=== PATIENT | female | born 1950 | race Caucasian/White ===

== ENCOUNTER → 2023-06-01 14:29 | Outpatient (CLI) | payer MEDICARE, OTHER, SELFPAY ==
--- NOTE | 2023-06-01 | DI.MG.S_ITS ---
BILATERAL DIGITAL SCREENING MAMMOGRAM 3D/2D WITH CAD: 06/01/2023 CLINICAL: Routine screening. Family history of breast cancer. Comparison is made to exams dated: 09/23/2017 mammogram, 07/15/2016 mammogram, and 05/04/2013 mammogram - [facility]. There are scattered areas of fibroglandular density in both breasts (category b / 25%-50% glandular tissue). Current study was also evaluated with a Computer Aided Detection (CAD) system. No significant masses, calcifications, or other findings are seen in either breast. There has been no significant interval change. IMPRESSION: NEGATIVE There is no mammographic evidence of malignancy. A 1 year screening mammogram is recommended. Based on the Tyrer Cuzick model (a risk assessment model) the patient's lifetime risk is 7.3% and her 10 year risk is 6.0%. According to the ACR, ACS, and NCCN guidelines, an annual breast MRI exam along with mammogram is recommended if the patient's lifetime risk is 20% or greater. This exam was interpreted at Station ID: [id number]. NOTE: For mammograms, a report in lay terms will be sent to the patient. Approximately 15% of breast malignancies will not be visualized mammographically. In the management of a palpable breast mass, a negative mammogram must not discourage biopsy of a clinically suspicious lesion. Electronically Signed By: Cliff linares/jamal:06/02/2023 08:46:14 letter sent: Normal Exam ACR BI-RADS Category 1: Negative [id number]
== END ==
PROVIDERS: Family Provider Family Medicine; PCP Family Medicine; Referring Provider Family Medicine; Visit Provider Family Medicine
DX: Z12.31 Encounter for screening mammogram for malignant neoplasm of breast (principal); Z80.3 Family history of malignant neoplasm of breast
CPT/HCPCS: 77063; 77067

== ENCOUNTER → 2024-11-11 07:51 | Outpatient (CLI) | payer MEDICARE, OTHER, SELFPAY ==
--- NOTE | 2024-11-11 07:53 | DI.MG.S_ITS ---
MM screening mammo BI: 11/11/2024. BI-RADS: 1 CLINICAL: 73-year old female for bilateral screening mammogram. Tyrer-Cuzick lifetime risk of 5.8%. Current reported family history of breast cancer: sister. PRIOR EXAMS 06/01/2023, 09/23/2017, 07/15/2016. MAMMOGRAPHY TECHNIQUE: 2D and 3D (tomosynthesis) digital mammographic views obtained, with additional images as needed for full coverage. Current study was also evaluated with a Computer Aided Detection (CAD) system. DENSITY B. There are scattered areas of fibroglandular density. MAMMOGRAPHY FINDINGS Bilateral: No suspicious mass, asymmetry, microcalcification, or other abnormality seen. IMPRESSION: * No evidence of malignancy. RECOMMENDATIONS Bilateral * Annual screening mammography. OVERALL ASSESSMENT CATEGORY BI-RADS-1: Negative. The [employer] recommends annual screening mammography beginning at age 40 for women with average risk of breast cancer. ELECTRONICALLY SIGNED: Karla Tineo M.D. on 11/14/2024 at 01:37:22 AM PT Interpreting Station ID: [id number]
== END ==
PROVIDERS: Family Provider Family Medicine; PCP Family Medicine; Referring Provider Family Medicine; Visit Provider Family Medicine
DX: Z12.31 Encounter for screening mammogram for malignant neoplasm of breast (principal); Z80.3 Family history of malignant neoplasm of breast
CPT/HCPCS: 77063; 77067

== ENCOUNTER 2024-12-08 18:48 | Emergency (ER) | payer MEDICARE, OTHER, SELFPAY ==
[2024-12-08 18:53] VITALS: BP 151/70; PULSE 64; RESP 18; TEMP 36.8; O2SAT 100; BMI 26.5
--- NOTE | 2024-12-08 19:18 | ED_ITS ---
HPI - Skin/Abscess/Foreign Bdy General Chief complaint: Skin/Abscess/Foreign Body Stated complaint: Poss Shingles Time Seen by Provider: 12/08/24 19:18 Source: patient Mode of arrival: Ambulatory Limitations: no limitations History of Present Illness HPI narrative: 74-year-old woman with no specific medical history began having left-sided chest pain 3 days ago was seen at [facility] with full cardiac workup including troponins BNP D-dimer chest x-ray CBC and CMP that did not show any abnormalities. Today she noticed vesicular rash on a red base under her left breast and when she looked on the back similar rash near her spine. That areas becoming increasingly tender. She has had a Zostavax immunization. No fevers, body aches or other systemic symptoms. The pain has been significant enough she is having difficulty sleeping. No palpitations, no dyspnea no abdominal pain. Related Data Home Medications ?Medication ?Instructions ?Recorded ?Confirmed AMINOBENZOIC ACID/BIOTIN/CA (#B 1 cap PO Q DAY ##0 COMPLEX) VITAMIN D 400 iu PO Q DAY ##0 12/30/11 Previous Rx's ?Medication ?Instructions ?Recorded zoster vaccine live (PF) 19,400 0.5 ml SQ ONCE #0.5 mL 06/27/16 unit/0.65 mL subcutaneous suspension (Zostavax (PF)) hydrocodone 5 mg-acetaminophen 325 1 tab PO Q6-8H PRN pain #14 tabs 12/08/24 mg tablet valacyclovir 1 gram tablet 1,000 mg PO TID #21 tabs Allergies Allergy/AdvReac Type Severity Reaction Status Date / Time No Known Drug Allergies Allergy Verified 12/08/24 18:54 Review of Systems Review of Systems Narrative: Pertinent positive and negative findings as per HPI Patient History Surgical History Status post tubal ligation History of cataract removal with insertion of prosthetic lens History of cataract removal with insertion of prosthetic lens Family History Father Age: 102 Hypertension Mother Pancreatic cancer Grandfather Prostate cancer Sister Age: 76 Hypertension Shingles Sister Age: 69 Breast cancer Smoking Status: Never smoker Exam Initial Vital Signs Initial Vital Signs: Vital Signs Temperature 98.2 F 12/08/24 18:53 Pulse Rate 64 12/08/24 18:53 Respiratory Rate 18 12/08/24 18:53 Blood Pressure 151/70 H 12/08/24 18:53 Pulse Oximetry 100 12/08/24 18:53 Oxygen Delivery Method Room Air 12/08/24 18:53 General: Alert appropriate in no acute distress Respiratory: Able to speak in full sentences, no obvious respiratory distress Skin: She has zoster outbreak beginning in the T5 distribution on the left side. Vesicles near the spine and just under her breast. Tender to touch Neurologic: Grossly intact no obvious asymmetries or abnormalities Psych: appropriate insight and affect, cooperative Course Vital Signs Vital signs: Vital Signs - 8 hr 12/08/24 18:53 Temperature 98.2 F Pulse Rate 64 Respiratory Rate 18 Blood Pressure 151/70 H Pulse Oximetry 100 Oxygen Delivery Method Room Air MDM - Skin/Abscess/Foreign Bdy MDM Narrative Medical decision making narrative: 74-year-old woman with left-sided rash, had zoster proton with significant chest pain workup at [facility] on the shows no cardiac or pulmonary abnormalities, rash developing today is confirmatory. We discussed anticipated course of shingles, resolution in the fact that it should be less severe and her risk of developing post herpetic neuralgia is less given her immunization status as well as early antiviral treatment once the rash was noticed today. There was no indication for additional workup or hospitalization and she is safe for discharge Discharge Plan Departure Patient Disposition: Home Clinical Impression: Herpes zoster Instructions: DI for Shingles Activity Restrictions/Additional Instructions: Thank you for coming in today You are 100% correct that this is shingles. It is not uncommon to have a pain prodrome I would explains why you had such significant left-sided chest pain a couple of days ago. I did review your labs from [facility] all looked quite reassuring. To treat shingles I am going to put you on a medicine called [place] acyclovir, this is an antiviral medication has a very few side effects but we will reduce the severity of the rash and reduce the risk of developing a post herpetic neuralgia The dose is 1 pill 3 times a day for a full week. I am also going to give you a prescription for hydrocodone. This is a narcotic we will cause constipation, please take it with a stool softener. This is for severe pain. For moderate Pain you can use Tylenol. [facility] [place] If you find that you are getting worse please return to the ER Prescriptions: New valacyclovir 1 gram tablet 1,000 mg PO TID Qty: 21 0RF hydrocodone-acetaminophen 5-325 mg tablet 1 tab PO Q6-8H PRN (Reason: pain) Qty: 14 0RF No Action AMINOBENZOIC ACID/BIOTIN/CA (#B COMPLEX) 1 cap PO Q DAY Qty: 0 VITAMIN D 400 iu PO Q DAY Qty: 0 zoster vaccine live (PF) [Zostavax (PF)] 19,400 UNIT/0.65 ML suspension for reconstitution 0.5 ml SQ ONCE Qty: 0.5 0RF Referrals: Swapna David MD [Primary Care Provider, Family Practice] Stand Alone Forms: Patient Portal/API
== END 2024-12-08 20:04 | disposition home or self-care (01) ==
PROVIDERS: Emergency Provider Emergency Medicine; Family Provider Family Medicine; PCP Family Medicine
DX: B02.9 Zoster without complications (principal)
CPT/HCPCS: 99281